=== PATIENT | female | born 1950 | race Caucasian/White ===

== ENCOUNTER → 2022-12-10 | Day surgery (SDC) | payer OTHER ==
[~2022-12-10] MED LIST: Iopamidol 370 76% 100 ML VIAL ONE
== END ==
LOC: CT 09:11
PROVIDERS: ATTEND Otolaryngology Otolaryngic Allergy
DX: E21.3 Hyperparathyroidism, unspecified (principal)
CPT/HCPCS: 70492; 78072; 82565; A9500; Q9967